=== PATIENT | male | born 1970 | race Caucasian/White ===

== ENCOUNTER 2019-09-12 12:07 | Emergency (ER) | payer SELFPAY ==
[2019-09-12] MEDS ORDERED: Penicillin V Potassium 250 MG TAB ONE (13:00)
[2019-09-12] MEDS ORDERED: Bupivacaine HCl 0.5%/Epinephrine 1:200,000/PF 30 ml Vial ONE (13:00)
== END 2019-09-12 13:19 | disposition home or self-care (01) ==
LOC: MADERS 12:07
DX: K04.7 Periapical abscess without sinus (principal); I10 Essential (primary) hypertension; F17.210 Nicotine dependence, cigarettes, uncomplicated
CPT/HCPCS: 64400; J0670